=== PATIENT | female | born 1995 | race African-American/Black ===

== ENCOUNTER 2023-03-16 20:44 | Emergency (ER) | payer OTHER ==
[~2023-03-16] VITALS: Ht 165.1 cm; Wt 101.2 kg
[~2023-03-16 20:44] MED LIST: ACULAR5 ML OS; TOBRADEX EYE DRO5 ML OS
[2023-03-16] MEDS ORDERED: KETOROLAC TROMETHAMINE 60 MG/2 ML VIAL IM ONE (21:00)
[2023-03-16] MEDS ORDERED: ACETAMINOPHEN 325 MG TAB PO ONE (21:00)
[2023-03-16] MEDS ORDERED: KETOROLAC TROMETHAMINE 60 MG/2 ML VIAL ONE (21:28)
[2023-03-16] MEDS ORDERED: ACETAMINOPHEN 325 MG TAB ONE (21:28)
[2023-03-16] MEDS ORDERED: AZITHROMYCIN250 MG PO (21:41)
[2023-03-16] MEDS ORDERED: CYCLOBENZAPRINE10 MG PO (21:41)
[2023-03-16] MEDS ORDERED: BENZONATATE200 MG PO (21:41)
[2023-03-16 21:48] VITALS: BP 123/77; PULSE 90; RESP 18; TEMP 97.3; O2SAT 97
== END 2023-03-16 21:48 | disposition home or self-care (01) ==
LOC: FSED 20:49
DX: R05.9 Cough, unspecified (principal); J40 Bronchitis, not specified as acute or chronic; R07.89 Other chest pain
CPT/HCPCS: 71046; 96372; 99283; J1885

== ENCOUNTER 2023-05-19 18:20 | Emergency (ER) | payer SELFPAY ==
[~2023-05-19] VITALS: Ht 165.1 cm; Wt 101.7 kg
[~2023-05-19 18:20] MED LIST changes: +AZITHROMYCIN250 MG PO; +BENZONATATE200 MG PO; +CYCLOBENZAPRINE10 MG PO
[2023-05-19] MEDS ORDERED: IBUPROFEN 400 MG TAB ONE (18:35)
[2023-05-19] MEDS ORDERED: IBUPROFEN 400 MG TAB PO ONE (18:45)
[2023-05-19 19:30] VITALS: O2SAT 97
== END 2023-05-19 19:35 | disposition home or self-care (01) ==
LOC: FSED 18:25
DX: S80.01XA Contusion of right knee, initial encounter (principal); W18.39XA Other fall on same level, initial encounter; Y92.89 Other specified places as the place of occurrence of the external cause
CPT/HCPCS: 99283

== ENCOUNTER 2025-08-17 10:37 | Emergency (ER) | payer SELFPAY ==
[~2025-08-17] VITALS: Ht 165.1 cm; Wt 113.1 kg
[~2025-08-17 10:37] MED LIST changes: +ACETAMINOPHEN-1 EAC4 PO; +BROMFED DM COU118 ML PO; +CEFUROXIME500 MG PO; +CEPHALEXIN500 M1 PO; +DIFLUCAN150 MG PO; +FAMOTIDINE20 MG PO; +IBUPROFEN200 MG PO; +IBUPROFEN600 MG PO; +KETOROLAC TROME10 MG PO; +MUPIROCIN22 GM TOP; +ONDANSETRON ODT4 MG PO; +ONDANSETRON4 MG/5 ML PO
[2025-08-17 10:40] VITALS: PULSE 97; RESP 18; TEMP 97.6; O2SAT 98
[2025-08-17] MEDS ORDERED: DIFLUCAN100 MG PO (10:58)
== END 2025-08-17 11:05 | disposition home or self-care (01) ==
LOC: FSED 10:41
DX: N76.0 Acute vaginitis (principal)
CPT/HCPCS: 99283